=== PATIENT | female | born 1950 | race Two or more races ===

== ENCOUNTER 2021-07-01 10:58 | Outpatient (CLI) | payer OTHER | END 2021-07-05 11:06 | disposition home or self-care (01) | LOC: RAD 10:58 | PROVIDERS: ATTEND Colon & Rectal Surgery | DX: K59.09 Other constipation (principal) ==

== ENCOUNTER 2021-08-07 10:39 | Outpatient (CLI) | payer OTHER | END 2021-08-07 10:48 | disposition home or self-care (01) | LOC: RAD 10:39 | PROVIDERS: ATTEND Colon & Rectal Surgery | DX: K58.1 Irritable bowel syndrome with constipation (principal); K57.30 Diverticulosis of large intestine without perforation or abscess without bleeding; K59.02 Outlet dysfunction constipation ==

== ENCOUNTER 2021-08-12 08:45 | Inpatient (IN) | payer OTHER ==
[~2021-08-12] VITALS: Ht 149.9 cm; Wt 67.1 kg
[2021-08-12] MEDS ORDERED: METFORMIN HCL500 M3 PO (10:29)
[2021-08-12] MEDS ORDERED: NOVOLOG MI100 UNIT/2 (10:30)
[2021-08-12] MEDS ORDERED: AVAPRO75 MG PO (10:31)
[2021-08-14] MEDS ORDERED: FLONASE16 GM (11:28)
[2021-08-14] MEDS ORDERED: GLIPIZIDE-METF1 EAC2 (11:28)
[2021-08-14] MEDS ORDERED: ATORVASTATIN CA40 MG (11:28)
[2021-08-14] MEDS ORDERED: PROAIR HFA8.5 GM (11:28)
[2021-08-14] MEDS ORDERED: ST. JOSEPH ASPI81 M2 (11:29)
[2021-08-14] MEDS ORDERED: NITROGLYCERIN0.4 MG (11:29)
== END 2021-08-20 11:10 | disposition home or self-care (01) | DRG 330 ==
LOC: SURG 08-14 05:51 → O/R 08-14 05:51 → SURH 08-14 07:00 → SURG 08-14 19:32 → O/R 08-14 19:37 → SURG 08-14 19:38
PROVIDERS: ADMIT Colon & Rectal Surgery; ATTEND Colon & Rectal Surgery
PROC: 0WQF4ZZ Repair Abdominal Wall, Percutaneous Endoscopic Approach (ICD-10-PCS; 2021-08-14)
PROC: 0DBP4ZZ Excision of Rectum, Percutaneous Endoscopic Approach (ICD-10-PCS; 2021-08-14)
PROC: 0DBU4ZZ Excision of Omentum, Percutaneous Endoscopic Approach (ICD-10-PCS; 2021-08-14)
PROC: 4A12X4Z Monitoring of Cardiac Electrical Activity, External Approach (ICD-10-PCS; 2021-08-14)
PROC: 0DTN4ZZ Resection of Sigmoid Colon, Percutaneous Endoscopic Approach (ICD-10-PCS; principal; 2021-08-14 07:00)
PROC: B24BZZZ Ultrasonography of Heart with Aorta (ICD-10-PCS; 2021-08-16)
DX: K57.30 Diverticulosis of large intestine without perforation or abscess without bleeding (principal); D62 Acute posthemorrhagic anemia; K43.2 Incisional hernia without obstruction or gangrene; K58.1 Irritable bowel syndrome with constipation; K59.02 Outlet dysfunction constipation; N73.6 Female pelvic peritoneal adhesions (postinfective); N99.4 Postprocedural pelvic peritoneal adhesions; I48.91 Unspecified atrial fibrillation; I11.9 Hypertensive heart disease without heart failure; G47.33 Obstructive sleep apnea (adult) (pediatric); E11.9 Type 2 diabetes mellitus without complications; Z79.4 Long term (current) use of insulin